=== PATIENT | female | born 1960 | race Caucasian/White ===

== ENCOUNTER → 2020-06-18 | Outpatient (CLI) | payer OTHER, SELFPAY ==
[2020-06-18 10:09] VITALS: BMI 26.4
[2020-06-18 14:53] LABS: Bacteria 0 SEEN /hpf (None Seen); Mucous, Urine 0 SEEN /hpf (<or=2+); Red Blood Cells-Urine 0 SEEN /hpf (0-5)
[2020-06-18 15:17] LABS: Color, Urine Yellow (Yellow); Glucose, Dipstick Normal (Normal); Ketone-Dipstick Negative (Negative); Leukocyte Esterase-Dipstick 500 /ul (Negative); Nitrite-Dipstick Negative (Negative); Occult Blood-Urine Negative /ul (Negative); Protein-Dipstick Negative (Negative); Urine Bilirubin Dipstick Negative (Negative); Urine Clarity Clear (Clear); Urine Urobilinogen Normal (Normal)
[2020-06-18 15:25] LABS: Squamous Epithelial Cells - UA 0-5 SEEN /hpf (5-10); White Blood Cells 0-5 SEEN /hpf (0-5)
== END | disposition home or self-care (01) ==
LOC: LABSPEC 13:42
PROVIDERS: PCP Internal Medicine; Visit Provider Physician Assistant
DX: N39.0 Urinary tract infection, site not specified (principal)
CPT/HCPCS: 81001; 87086; 87088; 87186

== ENCOUNTER 2021-06-14 11:55 | Outpatient (CLI) | payer MEDICAID, SELFPAY ==
[2021-06-14 12:06] LABS: Mucous, Urine 0 SEEN /hpf (<or=2+); Red Blood Cells-Urine 0 SEEN /hpf (0-5)
[2021-06-14 12:10] LABS: Color, Urine Yellow (Yellow); Glucose, Dipstick Normal (Normal); Ketone-Dipstick Negative (Negative); Leukocyte Esterase-Dipstick 500 /ul (Negative); Nitrite-Dipstick Negative (Negative); Occult Blood-Urine Negative /ul (Negative); Protein-Dipstick Negative (Negative); Urine Bilirubin Dipstick Negative (Negative); Urine Clarity Sl. Cloudy (Clear); Urine Urobilinogen Normal (Normal); Urine pH 6.5 (5.0 - 8.0)
[2021-06-14 12:19] LABS: Bacteria 0 SEEN /hpf (None Seen); Squamous Epithelial Cells - UA 0-5 SEEN /hpf (5-10); White Blood Cells 25-50 SEEN /hpf (0-5)
== END 2021-06-14 23:59 | disposition home or self-care (01) ==
LOC: LABSPEC 11:57
PROVIDERS: PCP Internal Medicine; Referring Provider Physician Assistant Surgical; Visit Provider Physician Assistant Surgical
DX: R30.9 Painful micturition, unspecified (principal)
CPT/HCPCS: 81001; 87086; 87088; 87186

== ENCOUNTER → 2022-10-04 | Outpatient (CLI) | payer BC, SELFPAY | END | disposition home or self-care (01) | PROVIDERS: PCP Internal Medicine; Referring Provider Physician Assistant; Visit Provider Physician Assistant | DX: R30.0 Dysuria (principal) | CPT/HCPCS: 87077; 87086; 87088; 87186 ==

== ENCOUNTER → 2022-12-14 | Outpatient (CLI) | payer BC, SELFPAY ==
--- NOTE | 2022-12-14 11:44 | US_ITS ---
STUDY: RENAL ULTRASOUND REASON FOR EXAM: Female, 62 years old. UTI TECHNIQUE: Ultrasound evaluation of the bilateral kidneys was performed with real-time ultrasonography and static grayscale imaging. COMPARISON: CT scan of the abdomen and pelvis of 01/17/2013. FINDINGS: RIGHT KIDNEY: Normal location of the right kidney which is normal in size. The right kidney measures 11.1 x 4.6 x 3.9 cm cm. There is a normal cortex of the right kidney. The renal cortex measures 1.3 cm. There is no right renal mass or cyst. There are no right renal calculi. There is no right hydronephrosis. Ureteral jet is not visualized. LEFT KIDNEY: Normal location of the left kidney which is normal in size. The left kidney measures 11.3 x 4.5 x 3.4 cm. There is a normal cortex of the left kidney. The renal cortex measures 1.3 cm. There is no left renal mass or cyst. There are no left renal calculi. There is no duplicate left collecting system. There is no left hydronephrosis. Previously seen small cyst in the left kidney could not be visualized at this time. BLADDER: The calculated prevoid bladder volume is 443 cc. There is no evidence of gallbladder wall thickening. US/Kidney and Bladder IMPRESSION: No evidence of hydronephrosis. Electronically Signed: Lucas Haro MD at 14:18 EDT ,
== END | disposition home or self-care (01) ==
LOC: US 11:41
PROVIDERS: PCP Nurse Practitioner Family; Referring Provider Urology; Visit Provider Urology
DX: N39.0 Urinary tract infection, site not specified (principal)
CPT/HCPCS: 76770

== ENCOUNTER → 2023-04-07 | Outpatient (CLI) | payer BC, SELFPAY ==
--- NOTE | 2023-04-07 10:21 | RAD_ITS ---
STUDY: X-RAY - RIGHT HAND REASON FOR EXAM: Female, 62 years old. PAIN TECHNIQUE: 4 view(s) of the hand. COMPARISON: None. FINDINGS: Normal radiocarpal articulation. Normal distal radioulnar joint. Normal visualized carpal bones. Normal carpal articulations Arthritic changes of the carpometacarpal articulation of the thumb. Normal second through fifth carpometacarpal joints. Normal metacarpi. Normal metacarpophalangeal joint of the thumb. Degenerative changes of the interphalangeal joint of the thumb. Normal proximal and distal phalanges of the thumb. Normal metacarpophalangeal joints of the second through fifth fingers. Normal proximal interphalangeal and degenerative changes of the distal interphalangeal joints of the second through fifth fingers. Normal phalanges of the second through fifth fingers. The soft tissue structures are unremarkable. RAD/Hand Min 3 Views IMPRESSION: Findings which are more consistent with degenerative osteoarthritic changes.. No acute fracture or other significant bone pathology Electronically Signed: Jeffery Atkinson MD at 17:14 EST Reading Location ID and State: [facility] / [place] Tel , Service support ,
--- NOTE | 2023-04-07 10:21 | RAD_ITS ---
STUDY: X-RAY - LEFT HAND REASON FOR EXAM: Female, 62 years old. PAIN TECHNIQUE: 3 view(s) of the hand. COMPARISON: None. FINDINGS: Normal radiocarpal articulation. Normal distal radioulnar joint. Normal visualized carpal bones. Normal carpal articulations Normal carpometacarpal articulation of the thumb. Normal second through fifth carpometacarpal joints. Normal metacarpi. Normal metacarpophalangeal joint of the thumb. Degenerative changes of the interphalangeal joint of the thumb. Normal proximal and distal phalanges of the thumb. Normal metacarpophalangeal joints of the second through fifth fingers. Normal proximal interphalangeal and mild degenerative changes of the distal interphalangeal joints of the second through fifth fingers. Normal phalanges of the second through fifth fingers. The soft tissue structures are unremarkable. RAD/Hand Min 3 Views IMPRESSION: Degenerative changes. No acute fracture or dislocation Electronically Signed: Jeffery Atkinson MD at 17:23 EST ,
--- NOTE | 2023-04-07 10:21 | RAD_ITS ---
INDICATION: PAIN EXAMINATION/TECHNIQUE: X-RAY - XR Pelvis 1 or 2 Views COMPARISON: No relevant prior comparison study available FINDINGS: PELVIC BONES: No displaced fracture, destructive or sclerotic lesions. Note that overlapping bowel shadows may however obscure fine detail. Sacroiliac joints are unremarkable. No widening of the pubic symphysis. HIPS: Narrowing of the hip joints bilaterally. No displaced fracture seen in this frontal view. SOFT TISSUES: Pelvic calcifications likely due to phleboliths. RAD/Pelvis 1 or 2 Views IMPRESSION: Moderate narrowing of the hip joints bilaterally worse on the right side. Electronically Signed: Lucas Haro MD at 16:07 EST ,
--- OUTSIDE RECORDS SUMMARY | 2023-04-07 10:49 | XMS RPT_ITS | CCD ---
Author Name Unknown Address [facility] [facility] [address] [place] [address] Organization [facility] Care Team Providers Care Dental Detail Representative Name Role Phone VERÓNICA GRACE, MARIBEL Chau Primary Care Physician MARIBEL MURO Attending MARIBEL Elena Primary Care JOI Garcia MD Attending Unavailable VERÓNICA GRACE, MARIBEL Chau Primary Care Anatoly GRACE, MARIBEL Chau Primary Care JOI Garcia MD Attending Unavailable Medications Current Medications Medication Drug Class(es) Dates Sig (Normalized) Sig (Original) aspirin 81 mg delayed release oral tablet (2 sources) Platelet Aggregation Inhibitor, Nonsteroidal Anti-inflammatory Drug Start: 12-09-2022 aspirin 81 mg oral delayed release tablet Dose : 81 mg = 1 tab(s), Oral, qDay, 0 Refill(s) Start Date: 12/09/22 Status: Ordered diphenhydrAMINE hydrochloride 25 mg oral capsule (2 sources) Histamine-1 Receptor Antagonist Start: 12-08-2022 take 1 mg by mouth every six hours Benadryl 25 mg oral capsule mg = cap(s), Oral, q6hr, 0 Refill(s) Start Date: 12/08/22 Status: Ordered meloxicam 15 mg oral tablet (2 sources) Nonsteroidal Anti-inflammatory Drug Start: 12-09-2022 End: 03-09-2023 meloxicam 15 mg oral tablet Dose : 15 mg = 1 tab(s), Oral, qDay, # 90 tab(s), 0 Refill(s), Pharmacy: [facility]/pharmacy #[id number], Rheumatoid arthritis, 161.5, cm, 12/08/22 13:53:00 EDT, Height, kg, 12/08/22 13:53:00 EDT, Dosing Weight Start Date: 12/09/22 Stop Date: 03/09/23 Status: Ordered Multivitamin preparation (2 sources) Start: 12-08-2022 take 1 tablet by mouth once daily Multivitamin Dose = 1 tab(s), Oral, Daily, 0 Refill(s) Start Date: 12/08/22 Status: Ordered omeprazole 40 mg delayed release oral capsule (2 sources) Proton Pump Inhibitor Start: 12-09-2022 End: 03-09-2023 omeprazole 40 mg oral delayed release capsule Dose : 40 mg = 1 cap(s), Oral, qDay, # 90 cap(s), 0 Refill(s), Pharmacy: [facility]/pharmacy #[id number], GERD (gastroesophageal reflux disease), 161.5, cm, 12/08/22 13:53:00 EDT, Height, kg, 12/08/22 13:53:00 EDT, Dosing Weight Start Date: 12/09/22 Stop Date: 03/09/23 Status: Ordered Problems Problem Classification Problem Date Documented Da te Episodic/Chronic Anxiety disorders (2 sources) Generalized anxiety disorder 04-21-2021 Chronic Mood disorders (4 sources) Bipolar disorder; Translations: [Depressive disorder] 12-08-2022 Chronic Other circulatory disease (2 sources) History of cerebrovascular disease 12-08-2022 Episodic Results Test Name Value Interpretation Reference Range Facil ity Encounters Encounter Date Encounter Type Care Provider Facility Start: 04-03-2023 ambulatory MARIBEL Syed APRN-SHAMPOOER Facility:B Start: 01-26-2023 End: 01-27-2023 ambulatory JOI SHEETS MD Facility:B Start: 01-26-2023 End: 01-26-2023 Patient encounter procedure JOI SHEETS MD [facility] Start: 01-23-2023 End: 01-24-2023 ambulatory MARIBEL SANCHES APRN-SHAMPOOER Facility:B Start: 01-23-2023 End: 01-23-2023 Patient encounter procedure JOI SHEETS MD [facility] Procedures Date Procedure Procedure Detail Performing Clinician Wrist joint inflamed (finding) JOI SHEETS MD Payers Date Payer Category Payer Unknown [id number] 1960 Unknown [id number] 1960 Unknown [id number] 1960 Unknown [id number] Social History Date Type Detail Facility Start: 07-01-2019 Tobacco smoking status Heavy t obacco smoker (finding) [facility] Sex Assigned At Female [facility] Clinical Note 01-26-2023 Note Date & Type Note Facility [facility] Clinical Note 01-26-2023 Note Date & Type Note Facility [facility] Evaluation + Plan note Laboratory Note Date & Type Note Facility Evaluation + Plan note Future Appointments Appointment Date:01/26/2023 02:00:00 PM Scheduled Provider: Location:RAD Appointment Type:VL AOH - Carotid US/Doppler Complete Appointment Date:01/26/2023 03:00:00 PM Scheduled Provider: Location:RAD Appointment Type:CV Procedure - AOH Echo Appointment Date:03/07/2023 11:00:00 AM Scheduled Provider:MARIBEL SANCHES Location:[facility] Appointment Type:PC Wellness Annual Future Scheduled TestsThyroid Stimulating Hormone 03/09/23Complete Blood Count 03/09/23Lipid Profile 03/09/23Hepatitis C Antibody IgG 03/09/23Vitamin D Level 03/09/23Complete Metabolic Panel 03/09/23 [facility] Evaluation + Plan note Laboratory Note Date & Type Note Facility Evaluation + Plan note Future Appointments Appointment Date:03/07/2023 11:00:00 AM Scheduled Provider:MARIBEL SANCHES Location:[facility] Appointment Type:PC Wellness Annual Future Scheduled TestsThyroid Stimulating Hormone 03/09/23Complete Blood Count 03/09/23Lipid Profile 03/09/23Hepatitis C Antibody IgG 03/09/23Vitamin D Level 03/09/23Complete Metabolic Panel 03/09/23 [facility] Hospital course Narrative Note Date & Type Note Facility Hospital course Narrative No data available for this section [facility] Hospital Discharge instructions Note Date & Type Note Facility Hospital Discharge instructions No data available for this section [facility] Progress note Note Date & Type Note Facility Progress note No data available for this section [facility] Summary Purpose Family History No Family History Records Found Advance Directives No Advanced Directives Records Found Additional Source Comments Patient Care team informatio n (unrecognized section and content) Care Team Personnel Name: MARIBEL SANCHES Position: P4 Advanced General Office Clerk Member Role: Primary Care Physician Address: Address: [address] [place] [address] Care Team Related Persons Name: ANGEL ARENAS Name: ANGEL ARENAS Name: DONNELL ACEVES Care Team Personnel Name: MARIBEL SANCHES Position: P4 Advanced General Office Clerk Member Role: Primary Care Physician Address: Address: [address] [place] [address] Care Team Related Persons Name: ANGEL ARENAS Name: ANGEL ARENAS Name: DONNELL ACEVES INFORMATION SOURCE (unrecogn ized section and content) FOR RECORDS PERTAINING TO PATIENTS WHO ARE OR HAVE BEEN ENROLLED IN A CHEMICAL DEPENDENCY/SUBSTANCEABUSE PROGRAM, SOME INFORMATION MAY BE OMITTED. This clinical summary was aggregated from multiple sources. Caution should be exercised in using it in the provision of clinical care. This summary normalizes information from multiple sources, and as a consequence, information in this document may materially change the coding, format and clinical context of patient data. In addition, data may be omitted in some cases. CLINICAL DECISIONS SHOULD BE BASED ON THE PRIMARY CLINICAL RECORDS. [facility] [employer] [facility]. provides no warranty or guarantee of the accuracy or completeness of information in this document.
[2023-04-07 12:24] LABS: Erythrocyte Sedimentation Rate 2 mm/hr (0-30)
[2023-04-07 12:28] LABS: Absolute Neutrophil Count 6.4 X10^3/uL (2.0-7.7); Basophil# 0.04 X10^3/uL; Basophil% 0.4 % (0-1); Eosinophil# 0.21 X10^3/uL; Eosinophils% 2.2 % (0-5); Hematocrit 46.5 % (37-47); Hemoglobin 15.1 g/dL (12.0-15.0); Mean Corp Hgb Conc 32.5 g/dL (32-36); Mean Corpuscular Hgb 32.5 pg (27.0-32.0); Mean Corpuscular Volume 100.2 fL (81-99); Mean Platelet Vol. 8.8 fl (6.2-12.0); Monocyte# 0.75 X10^3/uL; Monocyte% 7.8 % (0-10); NRBC Flagged by Analyzer 0 % (0-5); Neutrophil # 6.41 X10^3/uL (2.7-7.7); Neutrophil % 67.1 % (47-70); Platelet Count 343 K/mm3 (150-450); RBC Distribution Width SD 48.1 fl (35.1-43.9); Red Blood Count 4.64 M/mm3 (4.2-5.4); White Blood Count 9.6 K/mm3 (4.4-11.0)
[2023-04-07 13:03] LABS: ALB/GLOB Ratio 1.3 RATIO (0.9-2.4); AST(SGOT) 17 U/L (15-37); Alanine Aminotransfer ALT/SGPT 19 U/L (13-56); Albumin, Serum 4.3 g/dL (3.2-5.0); Alkaline Phosphatase 93 U/L (45-117); Anion Gap 6 (5-15); BUN 18 mg/dL (7-18); BUN/Creat Ratio 18.4 RATIO (10-20); CRP < 2.90 mg/L (0.0-3.0); Calcium,Total 9.2 mg/dL (8.5-10.1); Chloride 106 mmol/L (98-107); Creatinine, Serum 0.98 mg/dL (0.55-1.02); EST Glomerular Filtration Rate 61 mL/min (>60); Est Glom Filt Rate - Afr Amer 74 mL/min (>60); Globulin 3.4 g/dL (2.2-4.2); Glucose 93 mg/dL (74-106); Potassium 4.1 mmol/L (3.5-5.1); Protein, Total 7.7 g/dL (6.4-8.2); Sodium Level 141 mmol/L (136-145)
[2023-04-07 13:22] LABS: Hepatitis B Surface Antibody Non-Reactive; Hepatitis B Surface Antigen Non-Reactive (Nonreactive); Hepatitis C Antibody Non-Reactive (Nonreactive)
[2023-04-08 13:46] LABS: CCP IgG Antibodies 9 units (0-19)
[2023-04-10 13:07] LABS: ANTINUCLEAR ANTIBODIES DIRECT Negative (Negative)
== END | disposition home or self-care (01) ==
LOC: MTLAB 10:19
PROVIDERS: PCP Nurse Practitioner Family; Referring Provider Internal Medicine Rheumatology; Visit Provider Internal Medicine Rheumatology
DX: M05.79 Rheumatoid arthritis with rheumatoid factor of multiple sites without organ or systems involvement (principal); F31.9 Bipolar disorder, unspecified; G40.909 Epilepsy, unspecified, not intractable, without status epilepticus; M79.7 Fibromyalgia; K21.9 Gastro-esophageal reflux disease without esophagitis; Z86.73 Personal history of transient ischemic attack (TIA), and cerebral infarction without residual deficits
CPT/HCPCS: 36415; 72170; 73130; 80053; 85025; 85652; 86038; 86140; 86200; 86431; 86706; 86803; 87340